=== PATIENT | male | born 1955 | race Caucasian/White ===

== ENCOUNTER → 2021-01-30 11:41 | Outpatient (CLI) | payer MEDICARE, OTHER, SELFPAY ==
--- NOTE | 2021-01-30 11:41 | NM_ITS ---
APPROVED REPORT Exam: Nuclear Stress Test Indication: HTN, D.M., HYPERLIPIDEMIA, TOB USE, FM HX., C.P., SOB, FATIGUE Patient Location: Outpatient Stress Tech: [facility] Tech:Yazmin Eric, ARRT RT (R)(N)(M) Ht: 5 ft 11 in Wt: 275 lbs HR: 66 bpm BP: 128/80 mmHg BSA: 2.41 m2 BMI: 38.3 History: HTN, D.M., HYPERLIPIDEMIA, TOB USE, FM HX., C.P., SOB, FATIGUE Procedure: Patient received a 0.4 mg of intravenous Lexiscan, resting heart rate 66 bpm, resting blood pressure 128/80 mmHg, with Lexiscan maximum heart rate achived was 86 bpm which is Less than 85 % of the maximum predicted heart rate and blood pressure was 131/72 mmHg. With Lexiscan, patient denied any complaint of chest pain. Electrocardiogram Resting electrocardiogram shows sinus rhythm nonspecific ST-T changes, with Lexiscan there is less than 1.[address] segment depression noted from the baseline EKG. The EKG portion of the Lexiscan is nondiagnostic. Cardiac Stress and Resting SPECT Images: Cardiac Stress and Resting SPECT images were obtained using technetium 99m Myoview 31.0 mCi stress and 10.59 mCi at rest. Gated SPECT for the analysis of segmental wall motion and calculation of the ejection fraction done. Prone images were also obtained. Cardiac stress and resting SPECT images show uniform myocardial activity without segmental perfusion abnormality, computer derived ejection fraction is 60% with no regional wall motion abnormality, right ventricle is normal size and contractility. Conclusion: 1. The EKG portion of the Lexiscan is nondiagnostic. 2. No scintigraphic evidence of reversible ischemia seen, computer derived ejection fraction is 60% with no regional wall motion abnormality, right ventricle is normal size and contractility. 3. Normal Lexiscan Myoview study. Electronically signed by : Jerod Finn, 01/31/2021 10:07:48
--- NOTE | 2021-01-30 12:54 | CA_ITS ---
APPROVED REPORT EXAM: Comprehensive 2D, Doppler, and color-flow Echocardiogram Occupational Medicine Specialist: MICHELET Mccallum, RVS Ht: 5 ft 11 in Wt: 275lbs BSA: 2.41 HR: 75 bpm BP: 142/88 mmHg Rhythm: NSR Indications: SOB, CP, CAD, PADRON, Smoker, Hx-TIA 2D Dimensions IVSd 0.97 cm LVEF (Visual) 62.30 % PWd 0.76 cm LA Volume 58.40 mL LVDd 5.50 cm LA Volume Index 24.20 mL/m2 (M/F) 16-34 LVDs 3.63 cm Aortic Root 2.86 cm Left Atrium 4.13 cm LVOT 2.18 cm (M/F) 1.5-2.5 M-Mode Dimensions LA Diam 4.31 cm (1.9-4.0) LVDd 5.20 cm (3.5-5.7) Ao Diam 3.05 cm (2.0-3.7) LVDs 3.41 cm (3.5-5.7) EF (Teich) 63.10% EPSs 0.46 cm FS 34.40% EDV (Teich) 129.50 mL TAPSE 2.86 (<1.7) ESV (Teich) 47.80 mL LV Diastology E Decel Time 230.00 (160-240 msec) E/A Ratio 1.19 MED E' 10.10 (< 7 cm/sec) MED A' 10.10 cm/s E'/MED E' Ratio 9.43 (>14) LAT E' 10.70 (<10 cm/sec) LAT A' 10.20 cm/s E/LAT E' Ratio 8.90 (>14) Aortic Valve LVOT Max 119.00 (70-110 cm/s) LVOT VTI 23.24 cm AoV Peak Alexey. 172.00 (50-130 cm/s) AO Peak GR. 11.80 mmHg AO Mean GR. 5.50 (<5 mmHg) AO VTI 34.46 (18-25 cm) JOSUÉ (VTI) 2.52 (2.5-4.5 cm2) Mitral Valve MV A Velocity 80.00 (40-130 cm/s) E/A Ratio 1.19 MV Decel. Time 230.00 (160-240 ms) Pulmonary Valve PV Peak Velocity 93.00 (50-150 cm/s) Tricuspid Valve TR P. Velocity 172.00 cm/s RAP Estimate 10.00 mmHg RVSP 21.80 mmHg Left Ventricle Left atrium is normal size, left ventricle is normal size, there is no concentric left ventricular hypertrophy, visually estimated ejection fraction 55% with no regional wall motion abnormality, diastolic parameters are within normal range. Right Ventricle Right atrium and right ventricle are normal size and contractility. Aortic Valve Aortic valve is minimally thickened and fibrosed, there is no aortic stenosis or aortic insufficiency. Mitral Valve Mitral valve grossly normal, there is trace mitral regurgitation. Tricuspid Valve Tricuspid grossly normal, there is trace tricuspid regurgitation. Pulmonic Valve Pulmonic valve is poorly visualized. Great Vessels Aortic root is normal size. Pericardium No significant pericardial effusion noted. Conclusion 1. Normal left ventricular size, preserved left ventricular systolic function, visually estimated ejection fraction 55% with no regional wall motion abnormality, diastolic parameters are within normal range. 2. Trace mitral and tricuspid regurgitation. 3. No significant pericardial effusion noted. Electronically signed by : Jerod Finn, 01/31/2021 15:52:13
--- NOTE | 2021-01-30 13:57 | CA_ITS ---
APPROVED REPORT Exam: Pharmacologic Technologist: Rhianna Parikh, Ht: 5 ft 11 in Wt: 275 lbs BSA: 2.41 m2 HR: 66 bpm BP: 128/80 mmHg Medical History Medications: Amlodipine,,,,, Omeprazole,,,,, Gabapentin,,,,, HCTZ,,,,, Coreg,,,,, EnALAPRIL,,,,, Tizanidine,,,,, OxYbuterin,,,,, Mirtazapine,,,,, AtorvaASTATIN,,,,, Asapirin,,,,, Furosemide,,,,, Stress Test Details Test: LEXISCAN HR Resting HR: 69 bpm Max Heart Rate (APMHR): 155.515512 bpm Max HR Achieved: 92 bpm Target HR (85% APMHR): 131.529790 bpm % of APMHR: 59.35 Recovery HR: 76 bpm BP Resting BP: 128/80 mmHg Max BP: 131/72 mmHg Recovery BP: 120.0/65.0 mmHg ECG Resting ECG: NSR, NS ST abnormally in inferior leads Clinical Exercise duration: 04:01 min Highest Stage Achieved: Stress ECG Conclusion Symptoms: SOA, malaise, mild stomach discomfort. No CP. Arrhythmias/Ectopy: None ST-T Changes: Mild exaggeration of baseline abns. Conclusion: Unremarkable Lexiscan stress. Myoview images reported separately. Test Summary REST . . . . . . . Resting REST 04:11 . . 69 . 128/ 80 . . Stage 1 . . . . . . . Cardiolite injected Stage 1 01:00 . . 90 . . . . Stage 2 01:00 . . 86 . . . . Stage 3 01:00 . . 85 . 131/ 72 . . Stage 4 01:00 . . 81 . 121/ 70 . . Stage 4 01:01 . . 81 . 121/ 70 . Stop exercise at 04:01 RECOVERY 01:00 . . 76 . 116/ 70 . . RECOVERY 02:00 . . 82 . 122/ 66 . . RECOVERY 03:00 . . 75 . 120/ 65 . . RECOVERY 03:19 . . 76 . 120/ 65 . . Electronically signed by : Jerod Finn, 01/31/2021 10:02:25
== END ==
PROVIDERS: PCP Nurse Practitioner; Visit Provider Nurse Practitioner Family
DX: E78.5 Hyperlipidemia, unspecified (principal); F17.200 Nicotine dependence, unspecified, uncomplicated; G45.9 Transient cerebral ischemic attack, unspecified; I10 Essential (primary) hypertension; I20.9 Angina pectoris, unspecified; K21.9 Gastro-esophageal reflux disease without esophagitis; R06.00 Dyspnea, unspecified; R94.31 Abnormal electrocardiogram [ECG] [EKG]; Z82.49 Family history of ischemic heart disease and other diseases of the circulatory system
CPT/HCPCS: 78452; 93017; 93306; A9502; J2785